=== PATIENT | female | born 2000 | race American Indian/Alaskan Native ===

== ENCOUNTER 2021-02-07 11:47 | Emergency (ER) | payer MEDICAID ==
--- NOTE | 2021-02-07 12:11 | Emergency Department Report ---
ED ENT HPI - General Chief complaint: Skin/Abscess/Foreign Body Stated complaint: HEARING AID PIECE IN EAR Time Seen by Provider: 02/07/21 12:00 Source: patient Mode of arrival: Ambulatory Limitations: No Limitations - History of Present Illness Initial comments: Patient is a 20-year-old female presents emergency room complaints of a foreign body in her left ear. Patient states that a plastic attachment piece to her hearing aid got stuck in her ear canal. She states that it is causing ear pain. She states that this occurred 1 hour prior to arrival. She denies any bleeding from the ear. No other past medical history except for deafness. No allergies to medications. - Related Data Allergies Allergy/AdvReac Type Severity Reaction Status Date / Time No Known Allergies Allergy Unverified 02/07/21 11:56 ED Dental HPI - General Chief complaint: Skin/Abscess/Foreign Body Stated complaint: HEARING AID PIECE IN EAR Time Seen by Provider: 02/07/21 12:00 Source: patient Mode of arrival: Ambulatory Limitations: No Limitations - Related Data Allergies Allergy/AdvReac Type Severity Reaction Status Date / Time No Known Allergies Allergy Unverified 02/07/21 11:56 ED Review of Systems ROS: Stated complaint: HEARING AID PIECE IN EAR Other details as noted in HPI Comment: All other systems reviewed and negative ED Past Medical Hx - Past Medical History Previous Medical History?: No - Surgical History Past Surgical History?: No ED Physical Exam - General Limitations: No Limitations General appearance: alert, in no apparent distress - Head Head exam: Present: atraumatic, normocephalic - Eye Eye exam: Present: normal appearance - ENT ENT exam: Present: mucous membranes moist, other (right TM and canal normal in appearance, left canal there is a light brown rubber foreign body) - Neurological Exam Neurological exam: Present: alert, oriented X3 - Psychiatric Psychiatric exam: Present: normal affect, normal mood - Skin Skin exam: Present: warm, dry, intact ED Course Vital Signs 02/07/21 02/07/21 11:56 12:22 Temperature 98.7 F Pulse Rate 77 62 Respiratory 18 16 Rate Blood Pressure 124/73 Blood Pressure 120/66 [Left] O2 Sat by Pulse 100 99 Oximetry - Foreign Body Removal Ear Location: ear canal (L) Foreign Body Suspected: other (hearing aid attachment) Foreign Body Removed: yes Foreign Body Removal Technique: other (alligator forceps) Tympanic Membrane Intact: Yes Patient Tolerated Procedure: well, no complications Complications: none ED Medical Decision Making - Medical Decision Making Patient is a 20-year-old female presents emergency room complaints of a foreign body in her left ear. Patient states that a plastic attachment piece to her hearing aid got stuck in her ear canal. She states that it is causing ear pain. She states that this occurred 1 hour prior to arrival. She denies any bleeding from the ear. No other past medical history except for deafness. No allergies to medications. Vitals are normal. On exam:right TM and canal normal in appearance, left canal there is a light brown rubber foreign body. Foreign body removed completely per procedure note without any complications. Advised patient Follow-up with your primary care doctor. Return to emergency room for any new or worsening symptoms. Critical care attestation.: If time is entered above; I have spent that time in minutes in the direct care of this critically ill patient, excluding procedure time. ED Disposition Clinical Impression: Foreign body in ear Qualifiers: Encounter type: initial encounter Laterality: left Qualified Code(s): T16.2XXA - Foreign body in left ear, initial encounter Disposition: 01 HOME / SELF CARE / HOMELESS Is pt being admited?: No Does the pt Need Aspirin: No Condition: Stable Instructions: Ear Foreign Body Additional Instructions: Follow-up with your primary care doctor. Return to emergency room for any new or worsening symptoms. Referrals: your, primary care doctor [Other] - 3-5 Days Time of Disposition: 12:11 Print Language: CONGOLESE
[2021-02-07 12:23] VITALS: BP 120/66
== END 2021-02-07 12:22 | disposition home or self-care (01) ==
LOC: ED 11:47
DX: T16.2XXA Foreign body in left ear, initial encounter (principal); X58.XXXA Exposure to other specified factors, initial encounter; Y93.89 Activity, other specified; Y92.89 Other specified places as the place of occurrence of the external cause; Y99.8 Other external cause status
CPT/HCPCS: 99282

== ENCOUNTER 2021-02-24 09:24 | Emergency (ER) | payer MEDICAID ==
[2021-02-24 10:53] LABS: Basophils # (Auto) 0.1 K/mm3 (0.0-0.1); Eosinophils # (Auto) 0.1 K/mm3 (0.0-0.4); Eosinophils % (Auto) 1.6 % (0.0-4.3); Monocytes # (Auto) 0.3 K/mm3 (0.0-0.8); Monocytes % (Auto) 7.5 % (0.0-7.3)
--- NOTE | 2021-02-24 10:54 | Emergency Department Report ---
HPI - General Chief Complaint: Vaginal Bleeding Time Seen by Provider: 02/24/21 10:23 - HPI HPI: 20-year-old -[place] female presents to the emergency department with complaint of vaginal bleeding and some pelvic cramping while . At this point the patient should be about 6 weeks gestation. Patient went to [facility] last Saturday and Saturday for some mild vaginal spotting and had confirmation of at that time. She was told to follow-up with an [facility] and went to see women's specialist of [place], Dr. Li, on Saturday, 2 days ago. The patient had a transvaginal ultrasound done in the office at that time and the patient says that there was once again confirmation of intrauterine . However, after this appointment she began having much heavier vaginal bleeding, pelvic cramping. She has been going through about 3-4 pads per day. With this she is G2, P1 with 1 previous misca rriage. She has not taken anything for symptoms prior to presentation today. ED Past Medical Hx - Past Medical History Previous Medical History?: Yes Additional medical history: previous miscarriage - Surgical History Past Surgical History?: Yes Additional Surgical History: wisdom teeth ED Review of Systems ROS: Stated complaint: VAGINAL BLEDDING,5WEKS PREG Other details as noted in HPI Comment: All other systems reviewed and negative Constitutional: denies: chills, fever Eyes: denies: eye pain, vision change ENT: denies: ear pain, throat pain Respiratory: denies: cough, shortness of breath Cardiovascular: denies: chest pain, palpitations Gastrointestinal: denies: nausea, vomiting Genitourinary: other (Vaginal bleeding, pelvic cramping). denies: dysuria, discharge Musculoskeletal: denies: back pain, arthralgia Skin: denies: rash, lesions Neurological: denies: headache, weakness Physical Exam - Physical Exam Vital Signs: Vital Signs 02/24/21 10:07 Temperature 98.1 F Pulse Rate 70 Respiratory 17 Rate Blood Pressure 125/75 O2 Sat by Pulse 100 Oximetry Physical Exam: GENERAL: The patient is well-developed well-nourished. HENT: Normocephalic. Atraumatic. Patient has moist mucous membranes. EYES: Extraocular motions are intact. NECK: Supple. Trachea is midline. CHEST/LUNGS: Clear to auscultation. There is no respiratory distress noted. HEART/CARDIOVASCULAR: Regular. There is no tachycardia. There is no murmur. ABDOMEN: Abdomen is soft, nontender. Patient has normal bowel sounds. SKIN: Skin is warm and dry. NEURO: The patient is awake, alert, and oriented. The patient is cooperative. Normal speech. MUSCULOSKELETAL: There is no tenderness or deformity. There is no limitation range of motion. ED Course Vital Signs 02/24/21 10:07 Temperature 98.1 F Pulse Rate 70 Respiratory 17 Rate Blood Pressure 125/75 O2 Sat by Pulse 100 Oximetry ED Medical Decision Making - Lab Data Result diagrams: 02/24/21 10:29 02/24/21 10:29 - Radiology Data Radiology results: report reviewed ULTRASOUND OBSTETRIC REASON FOR EXAM: , bleeding, pelvic pain TECHNIQUE: Transabdominal and transvaginal ultrasound was performed to evaluate a first trimester . COMPARISON: None available. FINDINGS: The uterus measures 7.7 x 4.3 x 4.6 cm. Endometrial stripe measures 0.2 cm. No IUP is identified. The right ovary demonstrates a normal sonographic appearance. The left ovary demonstrates a normal sonographic appearance. Cul-de-sac: There is no free fluid. IMPRESSION: No discrete IUP identified. of unknown location. Findings could reflect an early intrauterine , occult ectopic , or recent spontaneous . In a hemodynamically stable patient, recommend follow-up with pelvic ultrasound in 7-10 days. - Medical Decision Making This patient presents to the emergency department with some vaginal bleeding and pelvic cramping while . The patient has been seen in [facility] emergency department when she initially just had some vaginal spotting about 5 days ago. The patient started having heavier vaginal bleeding after following up with her [facility] on Saturday, 2 days ago. The patient told me that she had a beta-hCG of about 220 when she was at [facility] emergency department. Her beta hCG today is about 135. Despite the vaginal bleeding, the patient has a hemoglobin of 11 and does not require any transfusion. She is RhoGam positive and therefore does not need the RhoGam shot. Ultrasound does not show any evidence of intrauterine . As the patient's beta hCG is gone down from about 220 down to 135, the patient most likely had a recent spontaneous miscarriage. Vital signs have been reassuring throughout her ED course. She has good outpatient follow-up with OB/ [facility] and has been instructed to follow-up with them in the next few days. She will return to the emergency department with any worsening of her symptoms or with any acute distress. Critical Care Time: No Critical care attestation.: If time is entered above; I have spent that time in minutes in the direct care of this critically ill patient, excluding procedure time. ED Disposition Clinical Impression: Miscarriage Disposition: HOME / SELF CARE / HOMELESS Is pt being admited?: No Condition: Stable Instructions: Miscarriage Additional Instructions: Your ultrasound today did not show any evidence of an intrauterine . Your beta hCG, the hormone, came back at 135. Based on your report to me that your hormone level was previously in the 200s, all this together appears consistent with a miscarriage. Please follow-up with your [facility] in the next few days. Return to the emergency department with any worsening of your symptoms, new or concerning symptoms not addressed during this current emergency department visit, or with any acute distress. Referrals: [facility], Your [Other] - 2-3 Days Time of Disposition: 13:05
[2021-02-24 11:07] LABS: Blood Urea Nitrogen 6 mg/dL (7-17); Calcium 9.3 mg/dL (8.4-10.2); Hemolysis Index 6
[2021-02-24 11:12] LABS: BUN/Creatinine Ratio 9
--- NOTE | 2021-02-24 11:16 | Ultrasound Report ---
ULTRASOUND OBSTETRIC REASON FOR EXAM: , bleeding, pelvic pain TECHNIQUE: Transabdominal and transvaginal ultrasound was performed to evaluate a first trimester pre gnancy. COMPARISON: None available. FINDINGS: The uterus measures 7.7 x 4.3 x 4.6 cm. Endometrial stripe measures 0.2 cm. No IUP is identified. The right ovary demonstrates a normal sonographic appearance. The left ovary demonstrates a normal sonographic appearance. Cul-de-sac: There is no free fluid. IMPRESSION: No discrete IUP identified. of unknown location. Findings could reflect an early intrauteri ne , occult ectopic , or recent spontaneous . In a hemodynamically stable p atient, recommend follow-up with pelvic ultrasound in 7-10 days. Signer Name: Ruel Arthur MD Signed: 02/24/2021 11:12 AM Workstation Name: [id number]
[2021-02-24 12:12] LABS: Hematocrit 34.9 % (30.3-42.9); Hemoglobin 11.2 gm/dl (10.1-14.3); Mean Corpuscular HGB Conc 32 % (30-34); Mean Corpuscular Volume 77 fl (79-97); Platelet Count 442 K/mm3 (140-440); Red Blood Count 4.51 M/mm3 (3.65-5.03); Red Cell Distribution Width 19.1 % (13.2-15.2)
[2021-02-24 12:45] LABS: Lymphocytes # (Auto) 1.8 K/mm3 (1.2-5.4); Lymphocytes % (Auto) 41.1 % (13.4-35.0)
[2021-02-24 15:01] VITALS: BP 122/71
== END 2021-02-24 13:30 | disposition home or self-care (01) ==
LOC: ED 09:24
DX: O03.9 Complete or unspecified spontaneous abortion without complication (principal); Z98.890 Other specified postprocedural states; R10.2 Pelvic and perineal pain
CPT/HCPCS: 36415; 76801; 80048; 84702; 85025; 86900; 86901; 99284